=== PATIENT | female | born 1990 | race Caucasian/White ===

== ENCOUNTER 2022-05-10 08:52 | Outpatient (CLI) | payer OTHER, SELFPAY ==
[2022-05-10 14:13] LABS: Thyroid Stimulating Hormone* 0.598 uIU/mL (0.270-4.20)
[2022-05-12 20:15] LABS: Antithrombin, Enzymatic 97 % (76-128)
[2022-05-15 19:50] LABS: FACV Specimen Whole Blood; Factor V Leiden (F5) Mutation Negative
[2022-05-16 08:06] LABS: PT PCR Specimen Whole Blood; Prothrombin(F2)G20210A Variant Negative
== END 2022-05-10 08:53 | disposition home or self-care (01) ==
PROVIDERS: PCP Physician Assistant Medical; Visit Provider Obstetrics & Gynecology
DX: N97.9 Female infertility, unspecified (principal); N96 Recurrent pregnancy loss
CPT/HCPCS: 81240; 81241; 84443; 84702; 85300

== ENCOUNTER 2022-06-07 14:18 | Outpatient (CLI) | payer OTHER, SELFPAY ==
[2022-06-14 10:02] LABS: Progesterone, HPLC-MS/MS 10.65 ng/mL
== END 2022-06-07 14:19 | disposition home or self-care (01) ==
LOC: NFLDREF 14:18
PROVIDERS: PCP Physician Assistant Medical; Visit Provider Obstetrics & Gynecology
DX: Z31.9 Encounter for procreative management, unspecified (principal)
CPT/HCPCS: 84144

== ENCOUNTER 2022-06-16 20:08 | Outpatient (CLI) | payer OTHER, SELFPAY | END 2022-06-16 20:09 | disposition home or self-care (01) | LOC: NFLDREF 06-22 17:15 | PROVIDERS: PCP Physician Assistant Medical; Visit Provider Advanced Practice Midwife | DX: N97.9 Female infertility, unspecified (principal); N96 Recurrent pregnancy loss | CPT/HCPCS: 82670 ==

== ENCOUNTER 2022-07-13 08:55 | Outpatient (CLI) | payer OTHER, SELFPAY | END 2022-07-13 08:56 | disposition home or self-care (01) | LOC: NFLDREF 07-15 09:40 | PROVIDERS: PCP Physician Assistant Medical; Visit Provider Obstetrics & Gynecology | DX: Z34.90 Encounter for supervision of normal pregnancy, unspecified, unspecified trimester (principal) | CPT/HCPCS: 87086; 87186 ==

== ENCOUNTER 2022-07-21 16:20 | Outpatient (CLI) | payer OTHER, SELFPAY ==
[2022-07-21 17:23] LABS: HCG Quantitative* 380.04 mIU/mL
== END 2022-07-21 16:21 | disposition home or self-care (01) ==
PROVIDERS: PCP Physician Assistant Medical; Visit Provider Obstetrics & Gynecology
DX: N96 Recurrent pregnancy loss (principal)
CPT/HCPCS: 84702

== ENCOUNTER 2022-08-05 14:02 | Outpatient (CLI) | payer OTHER, SELFPAY ==
[2022-08-05 17:36] LABS: Hepatitis B Surface Antigen* Negative (Negative)
[2022-08-05 17:45] LABS: HIV 1/2/P24 Combo Screen* Negative (Negative)
[2022-08-05 17:54] LABS: Hepatitis C Virus Antibody* Negative (Negative)
[2022-08-07 16:53] LABS: Rapid Plasma Reagin (RPR) Non Reactive (Non Reactive)
[2022-08-08 00:43] LABS: Varicella-Zoster Virus Ab, IgG 549.6 IV
== END 2022-08-05 14:03 | disposition home or self-care (01) ==
PROVIDERS: PCP Physician Assistant Medical; Visit Provider Advanced Practice Midwife
DX: Z34.81 Encounter for supervision of other normal pregnancy, first trimester (principal)
CPT/HCPCS: 76817; 86592; 86703; 86762; 86787; 86803; 86850; 86900; 86901; 87086; 87340

== ENCOUNTER 2022-09-21 13:45 | Outpatient (CLI) | payer OTHER, SELFPAY ==
[2022-09-21 15:02] LABS: TSH With Reflex to FT4* 0.524 uIU/mL (0.270-4.200)
[2022-09-23 18:13] LABS: TPO Antibody <0.3 IU/mL (0.0-9.0); Thyroglobulin Antibody <0.9 IU/mL (0.0-4.0)
== END 2022-09-21 13:46 | disposition home or self-care (01) ==
PROVIDERS: PCP Physician Assistant Medical; Visit Provider Advanced Practice Midwife
DX: N96 Recurrent pregnancy loss (principal)
CPT/HCPCS: 84443; 86376; 86800

== ENCOUNTER 2022-11-08 12:06 | Outpatient (CLI) | payer OTHER, SELFPAY ==
--- NOTE | 2022-11-08 12:15 | CRLHL7_ITS ---
For Patients: As a result of the Century Cures Act, medical imaging exams and procedure reports are released immediately into your electronic medical record. You may view this report before your referring provider. If you have questions, please contact your health care provider. INDICATION: Evaluate anatomy. COMPARISON: 08/05/2022 TECHNIQUE: Real time rich scale imaging of the fetus was performed as well as color Doppler analysis of the umbilical vessels. FINDINGS: Sonographic imaging demonstrates a single living intrauterine gestation. Fetus demonstrates a regular cardiac rate of 154 beats per minute. Fetus has a vertex position. The placenta lies posteriorly without evidence of placenta previa. The edge of the placenta is located 2.5 cm from the internal cervical os. Amniotic fluid volume appears normal. Single deepest vertical pocket: 5.5 cm. The cervix is closed and measures 3.4 cm in length. The composite ultrasound gestational age is calculated at 20 weeks 4 days with an estimated sonographic due date of 03/24/2023. The estimated weight is 360 grams which lies at the 76th %. The following biometric measurements were obtained: Biparietal diameter: 4.9 cm/20 weeks 6 days 84th% Head circumference: 17.7 cm/20 weeks 1 day 52nd% Abdominal circumference: 15.5 cm/20 weeks 5 days 68th% Femur length: 3.3 cm/20 weeks 3 days 57th% The HC/AC ratio measures: 1.14 range (1.07-1.25) On anatomic survey, there is a normal appearance of the cerebral ventricles, cavum septi pellucidi, cisterna magna and cerebellum. The nose, lips, and facial profile appear normal. The cervical, thoracic and lumbar spine are well visualized and appear normal. There is a normal four-chamber heart view and the left and right ventricular outflow tracts appear normal. The diaphragm and stomach appear normal. The kidneys and bladder also appear normal. There is a normal three-vessel cord and there is an eccentric cord insertion site. The four extremities appear normal. IMPRESSION: Normal OB ultrasound exam with concordance of clinical and sonographic dating. No intrinsic abnormalities noted on anatomic survey. Dictated by Kiet Marquez MD @ 11/09/2022 9:36:20 AM (Electronically Signed)
== END 2022-11-08 12:07 | disposition home or self-care (01) ==
LOC: US 12:07
PROVIDERS: PCP Physician Assistant Medical; Visit Provider Registered Nurse
DX: Z34.92 Encounter for supervision of normal pregnancy, unspecified, second trimester (principal); Z3A.20 20 weeks gestation of pregnancy
CPT/HCPCS: 76805

== ENCOUNTER 2023-01-04 11:00 | Outpatient (CLI) | payer OTHER, SELFPAY | END 2023-01-04 11:01 | disposition home or self-care (01) | LOC: NFLDREF 01-06 03:11 | PROVIDERS: PCP Physician Assistant Medical; Referring Provider Physician Assistant Medical; Visit Provider Advanced Practice Midwife | DX: Z34.93 Encounter for supervision of normal pregnancy, unspecified, third trimester (principal); Z3A.28 28 weeks gestation of pregnancy | CPT/HCPCS: 86592 ==

== ENCOUNTER 2023-03-28 10:54 | Outpatient (CLI) | payer OTHER, SELFPAY ==
--- NOTE | 2023-03-28 10:45 | CRLHL7_ITS ---
For Patients: As a result of the Cures Act, medical imaging exams and procedure reports are released immediately into your electronic medical record. You may view this report before your referring provider. If you have questions, please contact your health care provider. INDICATION: female measuring small for dates. Ultrasound for size/dates. Gestational age 40 weeks 0 days. TECHNIQUE: Transabdominal obstetrical ultrasound. COMPARISON: March 01, 2023. FINDINGS: Single living intrauterine in vertex presentation. Placenta is posterolaterally located toward the right of midline. heart rate is 150 beats per minute. Amniotic fluid volume is within normal limits with a single deepest pocket measurement of 2.7 cm, previously 6.3 cm. Biparietal diameter: 9.5 cm, 38 weeks 6 days, 63rd percentile. Head circumference 33.8 cm, 38 weeks 6 days, 21st percentile. Abdominal circumference: 33.8 cm, 37 weeks 5 days, 16th percentile. Femur length: 7.6 cm, 38 weeks 6 days, 35th percentile. Composite calculated ultrasound age: 38 weeks 4 days with a due date of April 07, 2023. This is now delayed by nearly 2 weeks when compared to the prior study of March 01, 2023. Estimated weight: 3441 grams. This lies at the 35th percentile. The head to abdominal circumference ratio is 1.0. This is normal. IMPRESSION: 1. Single living intrauterine in vertex presentation. Composite calculated ultrasound age 38 weeks 4 days with a sonographic due date of April 07, 2023 which is 2 weeks delayed when compared to the prior study of March 01, 2023. 2. Estimated weight lies at the 35th percentile, previously the 48th percentile. 3. Amniotic fluid volume measurement of 2.7 cm, previously 6.3 cm. Dictated by Marquez Masters MD @ 03/28/2023 2:41:16 PM (Electronically Signed)
== END 2023-03-28 10:55 | disposition home or self-care (01) ==
PROVIDERS: PCP Physician Assistant Medical; Visit Provider Advanced Practice Midwife
DX: O36.5930 Maternal care for other known or suspected poor fetal growth, third trimester, not applicable or unspecified (principal); Z3A.40 40 weeks gestation of pregnancy
CPT/HCPCS: 76816

== ENCOUNTER 2023-03-29 08:32 | Inpatient (IN) | payer OTHER, SELFPAY ==
[2023-03-29] VITALS (16 sets, daily range): BP systolic 112–140; BP diastolic 58–88; PULSE 62–82; RESP 16; TEMP 36.4–37.2; O2SAT 97–100; BMI 32.6
--- NOTE | 2023-03-29 08:42 | W.PM.LDBA ---
Subjective History of Present Illness Date Seen: 03/29/23 Narrative: Patient is being admitted to Labor and Delivery for spontaneous labor. She started nuvia around 0130 and them have increased in frequency and intensity since then. She is a 32 year old at 40.1 weeks gestation. Her full history and physical was dictated by James Miller CNM on 03/09/23. Please see this for details. 1. Hx of forceps delivery - possibly for OP, maternal exhaustion - pushed for 3 hrs. 2. Hx of multiple miscarriages vaginal progesterone, continue until [address] Blackwell 3. Anxiety and Depression Was on Meds in past, not currently 4. Gluten Free Diet 5. Covid at 25 weeks Growth US: declines 6.? Measuring small for dates.? EFW 48% OB - Problem Based A/P Additional Plan (1) : Status: Acute (2) Pain during labor: Status: Acute Plan ASSESSMENT:? at 40.1 weeks gestation? GBS negative? Uncomplicated ? Spontaneous labor ?? PLAN:? 1. Desires water . Consent signed. Hep C negative.? 2. Candidate for analgesia of choice. Planning unmedicated .? 3. Anticipate ? 4. Expectant management at this time.? 5. IV placement only if condition changes 6. Intermittent auscultation per unit policy Delivery/Labor/Induction Plan Plan: expectant management OB Result Labs Blood Type: O (+) positive GBS Status: negative OB Exam Physical Exam Vital signs: Temp Pulse Resp BP Pulse Ox 98.2 F 63 16 140/88 H 98 03/29/23 08:20 03/29/23 08:21 03/29/23 08:20 03/29/23 08:21 03/29/23 08:21 Narrative: Psychiatric:? Alert and oriented x3? HEENT:? Normocephalic, atraumatic? Neck:? Supple without adenopathy or thyromegaly? Lungs:? Clear to auscultation bilaterally? Heart:? Regular rate and rhythm, no murmur, rub or gallop? Abdomen:? Soft, nontender, and gravid? Extremities:? No edema or erythema? Detailed Labor and Delivery Exam Patient Gravid: Yes Dilation (cm): 4 Effacement (%): 90 Cervix position: mid Consistency: medium Contraction Frequency: 2-4 min Tachysystole: No Contraction intensity: Strong/Firm Fetus (Single) Station: -2 Amniotic Membrane Status: intact Heart Rate Baseline: 120 Monitor Accelerations: Present Monitor Decelerations: None Nursing Home Variability: Moderate (6-25)
[2023-03-29] MEDS: OXYTOCIN 10 UNIT/ML INJ IM (13:17)
--- NOTE | 2023-03-29 13:40 | W.PM.OBVAGDE ---
OB Procedure Vag Delivery Mother Details Mother Details: The patient is a 32 year-old, 5, Para 1, admitted on 03/29/23 at 40.1 Days gestation. : 5 Para: 2 Weeks Gestation: 40.1 Admission Date: 03/29/23 Additional Details Amniotic Membrane Status: AROM Amniotic Membrane Rupture Date: 03/29/23 Amniotic Membrane Rupture Time: 12:24 Amniotic Membrane Fluid Description: Clear Analgesia/Anesthesia Type: Nitrous Oxide Waterbirth: Yes Pitcoin: Yes ( only) Intrapartal Events: None Delivery augmentation: rupture of membranes Labor Onset: 05:40 Complete: 12:24 Pushin:52 Heart: heart tones during second stage were monitored by doppler and were in the 120-130 with audible accelerations and no decelerations heard. Delivery Details Delivery Date: 03/29/23 Delivery Time: 13:11 Route of delivery: Gender: Female Infant Viability: Alive; Heart Rate Present Position at Delivery: OA Delivery Details: Delivered over intact perineum via spontaneous vaginal delivery. was placed on maternal abdomen.? Cord was clamped and cut after a 5 minute delay. weight pending. 1 Minute Interval Total Score: 8 5 Minute Interval Total Score: 9 Additional Details Shoulder Dystocia: No Placenta Delivery Time: 13:24 Placental Delivery Description: Spontaneous (accessory lobe present, calcifications present greater on accessory lobe than main lobe) Blood Loss: 175 Laceration: None Episiotomy Description: None Blood Loss Measurement Type: QBL (100EBL in the tub, 75 QBL ) Bakri Used: No Cord Vessel Description: 3 Vessels (marginal cord insertion ) Event Summary Status: Mother and infant were stable after delivery. Disposition: floor
[2023-03-29] MEDS: IBUPROFEN 600 MG TABLET PO (17:48)
[2023-03-30 00:57] VITALS: BP 120/75; PULSE 60; RESP 18; TEMP 36.7
[2023-03-30] MEDS: IBUPROFEN 600 MG TABLET PO (01:09)
[2023-03-30 04:13] VITALS: BP 121/77; PULSE 64; RESP 16; TEMP 36.9
[2023-03-30 08:06] VITALS: BP 118/74; PULSE 67; RESP 16; TEMP 36.8; O2SAT 96
[2023-03-30 13:46] VITALS: BP 122/72; PULSE 67; RESP 16; TEMP 36.7; O2SAT 96
--- NOTE | 2023-03-30 15:15 | PM.OBDSVD1 ---
DS: Providers Provider Date Seen: 03/30/23 Date of admission: 03/29/23 08:32 Primary care physician: Brittany Ledesma PA-C Admitting Clinician: Jocelyn Moreno CNM Attending Physician on discharge: Agustina Amos CNM DS: Diagnosis Discharge Diagnosis (1) care and examination immediately after delivery: Status: Acute (2) Lactating mother: Status: Acute (3) Anxiety with depression: Status: Acute Exam Narrative: Exam Narrative: GENERAL APPEARANCE:? normal affect, alert, no distress MOOD:? appropriate CHEST:? clear to auscultation HEART:? regular rate and rhythm ABDOMEN:? soft, non-tender the uterine fundus is at Umbilicus, Midline and is appropriate for the stage of recovery. PERINEUM:? mild edema of the perineum, intact EXTREMITIES:? normal and no edema Const: Vital Signs, click to edit/add: Vital Signs - 24 hr 03/29/23 17:16 03/29/23 20:30 03/30/23 00:57 Temperature 98.2 F 98.1 F 98.1 F Pulse Rate [Blood Pressure Cuff] 62 64 60 Respiratory Rate 16 16 18 Blood Pressure [Ri ght Arm] 124/64 117/71 120/75 Pulse Oximetry 100 97 Oxygen Delivery Me thod Room Air Room Air Room Air 03/30/23 04:13 03/30/23 08:06 03/30/23 13:46 Temperature 98.4 F 98.2 F 98.1 F Pulse Rate [Blood Pressure Cuff] 64 67 67 Respiratory Rate 16 16 16 Blood Pressure [Ri ght Arm] 121/77 118/74 122/72 Pulse Oximetry 96 96 Oxygen Delivery Me thod Room Air Room Air Room Air OB - DS: Summary Hospital Course Hospital Course: Gabriela Aguero is a 32 year old G 5 P 2032 at 40 1/7 weeks gestation that was admitted to the Center on 03/29/23 for spontaneous labor. She had an uncomplicated vaginal delivery. She delivered a viable female infant. The patient feels well. ?The pain is well controlled with current medications. ?She has no new complaints. ?She is breast feeding and reports things are going well.? the patient has done well.? Vitals have been stable.? She has remained afebrile.? Has a good appetite, is tolerating a general diet. ?She is voiding without difficulty.? She is passing gas and has not had a bowel movement.? She is ambulating and denies any dizziness.? Has small amount of rubra lochia. ?She is planning NFP for prevention. She was seen earlier this am but had been undecided about discharge pending testing. She does desire discharge home today. Peripartum Data Infant delivery method: Vaginal Laceration description: None [place] Gender: Female Discharge Plan: Home Status at Discharge Functional status at discharge: independent ambulation Overall status at discharge: patient is progressing back to baseline Time Spent with Patient Time attestation: Total time spent providing and/or coordinating discharge services: Discharge Plan Discharge Disposition: Home, Self-Care Date of Admission: 03/29/23 08:32 Primary Care Provider: Brittany Ledesma Condition: Stable Anticipated Discharge Date/Time: 03/30/23 15:19 Discharge Medications: New acetaminophen 500 mg Tablet 1,000 mg PO Q6H PRNQty: 0 0RF docusate sodium 100 mg Capsule 100 mg PO DAILY Qty: 90 0RF ibuprofen 600 mg Tablet 600 mg PO Q6H PRNQty: 60 0RF Continued Fish Oil 100-160-1,000 mg capsule 1 cap PO QDAY with DHA-Folic Acid 400-32.5 mcg-mg tablet,chewable 1 tab PO DAILY magnesium carb,citrate,oxide 300 mg magnesium tablet 300 mg PO DAILY Zyrtec 10 mg capsule 10 mg PO QDAY PRN Discharge Orders: Discharge Order (Routine); Ordered 03/30/23 Ordered By: Agustina Amos Patient Education: OB Over the Counter Medication Information, OB Vaginal/Breast Feeding Additional Instructions: Discharge instructions were reviewed with the patient including signs and symptoms of infection and home going medications Nothing vaginally for 6 weeks: no tampons or intercourse Off Work or School for 6 weeks 2-week visit: discuss infant feeding concerns, review control options and screen for anxiety/depression. 6-week visit for an annual exam. consultation services are available to all mothers and babies for the first year after delivery.? To make an appointment, please call [phone]. Follow Up Appointments: [facility] [Provider Group] (2 weeks and 6 weeks ) Forms: [employer] Info Instructions
== END 2023-03-30 16:11 | disposition home or self-care (01) | DRG 807 ==
LOC: OB OUT 08:33 → OB 08:33
PROVIDERS: Absent Provider Advanced Practice Midwife; Admitting Provider Advanced Practice Midwife; PCP Physician Assistant Medical; Visit Provider Advanced Practice Midwife
DX: O80 Encounter for full-term uncomplicated delivery (principal); Z37.0 Single live birth; F41.9 Anxiety disorder, unspecified; Z3A.40 40 weeks gestation of pregnancy
CPT/HCPCS: A9270; J2590

== ENCOUNTER 2025-02-07 08:23 | Outpatient (CLI) | payer OTHER, SELFPAY | END 2025-02-07 08:24 | disposition home or self-care (01) | PROVIDERS: PCP Registered Nurse; Visit Provider Registered Nurse | DX: Z00.00 Encounter for general adult medical examination without abnormal findings (principal); Z13.6 Encounter for screening for cardiovascular disorders; Z13.1 Encounter for screening for diabetes mellitus | CPT/HCPCS: 80061; 82947 ==

== ENCOUNTER 2025-05-09 12:53 | Outpatient (CLI) | payer OTHER, SELFPAY ==
--- NOTE | 2025-05-09 13:00 | CRLHL7_ITS ---
For Patients: As a result of the Cures Act, medical imaging exams and procedure reports are released immediately into your electronic medical record. You may view this report before your referring provider. If you have questions, please contact your health care provider. OB ULTRASOUND LESS THAN 14 WEEKS, 05/09/2025 CLINICAL HISTORY: Dating and viability. TECHNIQUE: Real time rich scale imaging of the fetus was performed. Transvaginal imaging performed. COMPARISON: None. FINDINGS: LMP: 03/03/2025. SAGAR by LMP: 12/08/2025. GA: 9 weeks 4 days. CRL: 2.6 cm, 9 weeks 3 days. SAGAR: 12/09/2025. FHR: 178 bpm. Gest Sac: 4.0 cm, appears WNL. Yolk Sac: 3.7 mm, appears WNL. Right Ovary: 4.3 x 2.0 x 2.7 cm. CL Left Ovary: 1.9 x 2.6 x 1.4 cm. IMPRESSION: 1. Single living intrauterine measuring 9 weeks 3 days with sonographic due date 12/09/2025. 2. Subchorionic hemorrhage measures 6 x 21 x 12 mm. 3. Corpus luteal cyst right ovary measures 1.7 cm. Kiet Marquez M.D. Diagnostic Radiologist [email or web address] Transcribed: 10:06 am DW/Dictated by: Kiet Marquez MD @ 05/12/2025 9:12:00 PM (Electronically Signed)
== END 2025-05-09 12:54 | disposition home or self-care (01) ==
LOC: US 12:54
PROVIDERS: PCP Registered Nurse; Visit Provider Advanced Practice Midwife
DX: Z34.91 Encounter for supervision of normal pregnancy, unspecified, first trimester (principal); O20.9 Hemorrhage in early pregnancy, unspecified; O34.81 Maternal care for other abnormalities of pelvic organs, first trimester; N83.11 Corpus luteum cyst of right ovary; Z3A.09 9 weeks gestation of pregnancy
CPT/HCPCS: 76817

== ENCOUNTER 2025-05-09 14:07 | Outpatient (CLI) | payer OTHER, SELFPAY | END 2025-05-09 14:08 | disposition home or self-care (01) | PROVIDERS: PCP Registered Nurse; Visit Provider Advanced Practice Midwife | DX: Z34.81 Encounter for supervision of other normal pregnancy, first trimester (principal); Z67.40 Type O blood, Rh positive | CPT/HCPCS: 83020; 83021; 84443; 85660; 86592; 86703; 86704; 86706; 86762; 86787; 86803; 86850; 86900; 86901; 87086; 87340 ==

== ENCOUNTER 2025-07-22 14:09 | Outpatient (CLI) | payer OTHER, SELFPAY ==
--- NOTE | 2025-07-22 14:00 | CRLHL7_ITS ---
For Patients: As a result of the Century Cures Act, medical imaging exams and procedure reports are released immediately into your electronic medical record. You may view this report before your referring provider. If you have questions, please contact your health care provider. OB ULTRASOUND GREATER THAN 14 WEEKS CLINICAL HISTORY: Supervision of normal . TECHNIQUE: Real time rich scale imaging of the fetus was performed. Transabdominal imaging performed. FINDINGS: LMP: 03/03/2025. SAGAR by LMP: 12/08/2025. GA: 20 weeks 1 day. Position: Oblique, transverse, breech, tevin breech, multiple positions. Head to maternal: Left. Cervix: Visualized. Technique: TA. Length of closed cervix: 4.8 cm. Placenta/Cord Placenta Position: Anterior. Technique: TA. Placenta tip to internal OS: 3.6 cm. Umbilical Cord: 3 vessel cord. Placental Insertion: Central. Amniotic Fluid: 4.4 cm SDP. OBSERVED STRUCTURES Calvarium/Spine Cerebellum 2.3 cm, 22 weeks 3 days Cisterna Magna: 4.5 mm Nuchal Fold: 4.8 mm Lateral Ventricle: 5.9 mm CSP Choroid Plexus Midline Falx Spine Abdomen: Stomach Abd Cord Insert Urinary Bladder Kidneys Diaphragm Face: Nose/Lips Orbital view Profile Limbs: Upper Extremities Lower Extremities Hands Feet Vascular: 4 Ch Heart LVOT RVOT 3VV 3VTV BIOMETRY BPD: 4.7 cm, 20 weeks 1 day. 47% HC: 17.6 cm, 20 weeks 1 day. 40% AC: 14.9 cm, 20 weeks 1 day. 45% FL: 3.2 cm, 20 weeks 0 days. 37% FL/AC: 21.51% HC/AC Ratio: 1.18. Heart Rate: 150 bpm. Feal Age by this US: 20 weeks 4 days. SAGAR by this US: 12/05/2025. EFW: 331.89 grams, 0 lbs 12 oz. Percentile by SAGAR: 43% IMPRESSION: 1. Concordance of clinical and sonographic dating. 2. Normal anatomic survey. 3. A placental traore is present adjacent to the placental cord insertion which measures 3.4 x 0.7 x 2.7 cm. Kiet Marquez M.D. Diagnostic Radiologist [email or web address] Transcribed: 9:36 am DW/Dictated by: Kiet Marquez MD @ 07/23/2025 8:31:00 AM (Electronically Signed)
== END 2025-07-22 14:10 | disposition home or self-care (01) ==
LOC: US 14:09
PROVIDERS: PCP Registered Nurse; Visit Provider Advanced Practice Midwife
DX: Z34.92 Encounter for supervision of normal pregnancy, unspecified, second trimester (principal); Z3A.20 20 weeks gestation of pregnancy
CPT/HCPCS: 76805

== ENCOUNTER 2025-09-19 11:06 | Outpatient (CLI) | payer OTHER, SELFPAY | END 2025-09-19 11:07 | disposition home or self-care (01) | LOC: NFLDREF 09-25 09:17 | PROVIDERS: PCP Registered Nurse; Referring Provider Registered Nurse; Visit Provider Advanced Practice Midwife | DX: Z34.93 Encounter for supervision of normal pregnancy, unspecified, third trimester (principal) | CPT/HCPCS: 86762; 86780 ==